=== PATIENT | male | born 1970 | race Hispanic/Latino ===

== ENCOUNTER 2018-05-11 09:28 | Observation (INO) | payer SELFPAY ==
[2018-05-11] MEDS ORDERED: METOPROLOL TARTRATE 5 MG/5 ML INJ IV ONE (09:53)
[2018-05-11] MEDS ORDERED: METOPROLOL TAR 50 MG TAB ONE (09:53)
[2018-05-11] MEDS ORDERED: NA CHLORIDE 0.9% 1,000 ML ONE (09:54)
[2018-05-11 10:08] LABS: Absolute Lymphocytes (CBC) 1.7 K/uL (0.7-4.9); Absolute Monocytes 0.9 K/uL (0.1-1.3); Absolute Neutrophil 5.3 K/uL (1.8-8.0); Basophils % 0.5 % (0-1.3); Eosinophils % 1.4 % (0-4.4); Hematocrit 44.4 % (39.6-49.0); Lymphocytes % 20.7 % (15.3-44.8); MCH 27.7 pg (27.0-35.0); MCV 82.7 fL (80-100); MPV 9.1 fL (7.6-11.3); Monocytes % 11.6 % (3.3-12.3); RBC Red Blood Cell Count 5.37 M/uL (4.33-5.43)
[2018-05-11] MEDS ORDERED: ASPIRIN 81 MG CHEWABLE TABLET ONE (10:09)
[2018-05-11] MEDS ORDERED: ENOXAPARIN 60 MG/0.6 ML SQ ONE (10:10)
[2018-05-11] MEDS ORDERED: METOPROLOL TAR 25 MG TAB ONE (10:10)
[2018-05-11 10:12] LABS: ALT/SGPT 19 U/L (12-78); AST/SGOT 15 U/L (15-37); Albumin 3.5 g/dL (3.4-5.0); Alkaline Phosphatase 107 U/L (45-117); BUN Blood Urea Nitrogen 18 mg/dL (7-18); Bicarbonate 31 mmol/L (21-32); Bilirubin Direct 0.1 mg/dL (0-0.2); Bilirubin Total 0.4 mg/dL (0.2-1.0); CKMB Creatine Kinase MB 1.8 ng/mL (0.3-3.6); Creatine Phosphokinase 144 U/L (39-308); Glucose Level 102 mg/dL (74-106); Magnesium 1.9 mg/dL (1.8-2.4); NT PRO-BNP 798 pg/mL (<125); Potassium 3.9 mmol/L (3.5-5.1); Protein, Total 7.1 g/dL (6.4-8.2); Sodium Level 144 mmol/L (136-145); Troponin (Emerg Dept Use Only) < 0.02 ng/mL (0.0-0.045)
--- NOTE | 2018-05-11 10:22 | RAD REPORT ---
EXAM DESCRIPTION: RAD - Chest Single View - 05/11/2018 9:41 am CLINICAL HISTORY: Right-sided chest and arm pain COMPARISON: None. TECHNIQUE: AP portable chest image was obtained [id number] hours . FINDINGS: Low lung volumes noted. Left hemidiaphragm elevation is present. Interstitial markings are prominent in part due to under penetrated portable technique and shallow inspiration. On a baseline examination, a mild interstitial edema or infiltrate not excluded. No peripheral consolidation or mas s. Significant component of failure or volume overload not suspected. Heart and vasculature are ladonna l. No measurable pleural effusion and no pneumothorax. No gross bony abnormality seen. No acute aorti c findings suspected. IMPRESSION: Shallow inspiration baseline exam shows prominent interstitial markings. This could be b aseline for the patient or represent a mild interstitial edema or infiltrate. No mass, focal consolidation or significant failure.
[2018-05-11 10:24] LABS: Protime INR 1.05
--- NOTE | 2018-05-11 10:30 | ER ---
Nurse's Notes [facility] Name: Chris Salazar III Age: 47 yrs Sex: Male : 1970 Arrival Date: 05/11/2018 Time: 09:34 Bed 4 Private MD: Diagnosis: Atrial fibrillation and flutter Presentation: 05/11 09:35 Presenting complaint: Patient states: pain to R arm on and off for weeks. 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 started feeling weird, pressure in chest. HR was flucutating from 70's to 140's. Transition of care: patient was not received from another setting of care. Onset of symptoms was May 11, 2018 at 08:00. Risk Assessment: Do you want to hurt yourself or someone else? Patient reports no desire to harm self or others. Initial Sepsis Screen: Does the patient meet any 2 criteria? No. Patient's initial sepsis screen is negative. Does the patient have a suspected source of infection? No. Patient's initial sepsis screen is negative. Care prior to arrival: IV initiated. 20 GA, in the left antecubital area. 09:35 Method Of Arrival: EMS: [facility] 09:35 Acuity: MAGUI 3 ch Triage Assessment: 09:38 General: Appears in no apparent distress. comfortable, Behavior is calm, cooperative, ch appropriate for age. Pain: Complains of pain in right arm. Neuro: No deficits noted. Cardiovascular: Heart tones S1 S2 present Capillary refill < 3 seconds in bilateral fingers toes Clubbing of nail beds is absent Patient's skin is warm and dry. Pulses are all present. Edema is absent. Rhythm is atrial fibrillation Chest pain is denied. Respiratory: No deficits noted. Airway is patent Respiratory effort is even, unlabored, Breath sounds are clear bilaterally. GI: Abdomen is round non-distended, Bowel sounds present X 4 quads. Abd is soft and non tender X 4 quads. Derm: Skin is intact, Skin is pink, warm \T\ dry. Historical: - Allergies: 09:38 No Known Allergies; ch - Home Meds: 09:38 None [Active]; ch - PMHx: 09:38 None; ch - PSHx: 09:38 None; ch - Immunization history:: Adult Immunizations up to date, Last tetanus immunization: up to date Pneumococcal vaccine is not up to date, Flu vaccine is not up to date. - Social history:: Smoking status: Patient/guardian denies using tobacco, Patient/guardian denies using alcohol, street drugs. - Ebola Screening: : Patient negative for fever greater than or equal to 101.5 degrees Fahrenheit, and additional compatible Ebola Virus Disease symptoms Patient denies exposure to infectious person Patient denies travel to an Ebola-affected area in the 21 days before illness onset No symptoms or risks identified at this time. Screenin:41 Abuse screen: Denies threats or abuse. Denies injuries from another. Nutritional screening: No deficits noted. Tuberculosis screening: No symptoms or risk factors identified. Fall Risk None identified. Assessment: 09:41 Reassessment: Patient appears in no apparent distress at this time. No changes from previously documented assessment. Patient and/or family updated on plan of care and expected duration. Pain level reassessed. Patient is alert, oriented x 3, equal unlabored respirations, skin warm/dry/pink. 10:23 Reassessment: Patient appears in no apparent distress at this time. No changes from previously documented assessment. pt hr is reduced but still A fib. 12:08 Reassessment: Patient appears in no apparent distress at this time. Patient and/or family updated on plan of care and expected duration. Pain level reassessed. Patient is alert, oriented x 3, equal unlabored respirations, skin warm/dry/pink. Patient denies pain at this time. Patient states feeling better. Patient states symptoms have improved. 12:08 Reassessment: Patient appears in no apparent distress at this time. pt denies pain, I ch attempt to call report, will call again in 10 min. 12:26 Reassessment: Patient appears in no apparent distress at this time. No changes from previously documented assessment. Patient and/or family updated on plan of care and expected duration. Pain level reassessed. Patient is alert, oriented x 3, equal unlabored respirations, skin warm/dry/pink. repot called to sugey whiting. Patient denies pain at this time. Vital Signs: 09:38 BP 120 / 81; Pulse 109; Resp 22; Temp 98.3; Pulse Ox 99% on R/A; Weight 117.93 kg; Height 6 ft. 1 in. (185.42 cm); Pain 5/10; 09:43 Pulse 128; ch 09:59 BP 101 / 80; Pulse 88; Resp 16; Temp 98.3; Pulse Ox 99% on R/A; Pain 0/10; ch 10:20 BP 118 / 78; Pulse 88; Resp 18; Pulse Ox 99% ; ch 11:00 BP 110 / 58; Pulse 96; Resp 18; Pulse Ox 99% ; ch 12:06 BP 103 / 78; Pulse 75; Resp 18; Temp 98.6; Pulse Ox 99% on R/A; Pain 0/10; ch 09:38 Body Mass Index 34.30 (117.93 kg, 185.42 cm) ch 11:00 pt still in A fib, rate between 70 and 110 ch ED Course: 09:34 Patient arrived in ED. iw 09:34 Dana Del Rio, RN is Primary Nurse. ch 09:37 Triage completed. ch 09:38 Arm band placed on left wrist. Patient placed in an exam room, on a stretcher, on personnel monitor, on pulse oximetry. EKG completed in triage. Results shown to MD. 09:41 X-ray completed. Portable x-ray completed in exam room. Patient tolerated procedure mh1 well. 09:41 No apparent distress. Resting quietly. ch 09:41 Patient has correct armband on for positive identification. Placed in gown. Bed in low ch position. Call light in reach. Side rails up X 1. Adult w/ patient. monitor tech on. Pulse ox on. NIBP on. Warm blanket given. 09:41 No provider procedures requiring assistance completed. Maintain EMS IV. Dressing ch intact. Good blood return noted. Site clean \T\ dry. Gauge \T\ site: 20G L AC. 09:42 XRAY Chest (1 view) In Process Unspecified. EDMS 09:51 EKG done, by dental laboratory technician apprentice. reviewed by Jack Wooten MD. sm3 09:54 Jack Wooten MD is Attending Physician. kdr 10:29 Caleb Marie DO is Hospitalizing Provider. kdr 11:10 Urine collected: clean catch specimen, cloudy, lucinda colored. jb1 Administered Medications: 09:50 Drug: Lopressor 2.5 mg Route: IVP; Site: left antecubital; ch 09:50 Drug: NS 0.9% 500 ml Route: IV; Rate: bolus; Site: left antecubital; ch 10:40 Follow up: IV Status: Completed infusion; IV Intake: 500ml ch 09:55 Drug: Lopressor 2.5 mg Route: IVP; Site: left antecubital; ch 10:20 Follow up: BP 118 / 78; Pulse 88 bpm; Resp 18 bpm; Pulse Ox 99% ch 10:20 Follow up: Response: No adverse reaction; Marked relief of symptoms; Marked relief of ch symptoms, erp states not to give pt the last round due to low bp 10:00 Drug: Lovenox 120 mg Route: Sub-Q; Site: left lower abdomen; ch 12:09 Follow up: Response: No adverse reaction; Marked relief of symptoms ch 10:19 Not Given (pt reports taking this medication [facility] the [facility] from [facility]): Aspirin ch Chewable Tablet 324 mg PO once; 81 mg tablets x 4 10:19 Drug: Lopressor 25 mg Route: PO; ch 12:10 Follow up: Response: No adverse reaction; Marked relief of symptoms ch Intake: 10:40 IV: 500ml; Total: 500ml. ch Outcome: 10:29 Decision to Hospitalize by Provider. kdr 12:35 Patient left the ED. dm5 Signatures: Dispatcher [employer] EDAnanda Jaffe jb1 Dana Del Rio RN RN Talya Fernandez RN RN dm5 Jack Wooten MD MD [facility] Kelsea Chaves 1 Randee Edward RN RN Lacy Loera 3 Corrections: (The following items were deleted from the chart) 09:38 09:35 Care prior to arrival: None. ch ch
--- NOTE | 2018-05-11 10:30 | EDPHYS ---
Physician Documentation [facility] Name: Chris Salazar III Age: 47 yrs Sex: Male : 1970 Arrival Date: 05/11/2018 Time: 09:34 Bed 4 Private MD: ED Physician Jack Wooten HPI: 05/11 10:33 This 47 yrs old Male presents to ER via EMS with complaints of Palpiations. kdr 10:33 The patient presents with a history of irregular heart beat. Context: The symptoms kdr occur at rest, with light activity. Onset: The symptoms/episode began/occurred suddenly, just prior to arrival. Duration: The patient or guardian reports a single episode, that is still ongoing. Modifying factors: The symptoms are aggravated by nothing. The symptoms are alleviated by nothing. Associated signs and symptoms: The patient has no apparent associated signs or symptoms, Pertinent positives: States that he just didn't feel right. Severity of symptoms: At their worst the symptoms were mild just prior to arrival, in the emergency department the symptoms are unchanged. The patient has not experienced similar symptoms in the past. The patient has been recently seen by a physician: Had routine eval \T\ blood work - all normal. No prior incidents like this. Historical: - Allergies: 09:38 No Known Allergies; ch - Home Meds: 09:38 None [Active]; ch - PMHx: 09:38 None; ch - PSHx: 09:38 None; ch - Immunization history:: Adult Immunizations up to date, Last tetanus immunization: up to date Pneumococcal vaccine is not up to date, Flu vaccine is not up to date. - Social history:: Smoking status: Patient/guardian denies using tobacco, Patient/guardian denies using alcohol, street drugs. - Ebola Screening: : Patient negative for fever greater than or equal to 101.5 degrees Fahrenheit, and additional compatible Ebola Virus Disease symptoms Patient denies exposure to infectious person Patient denies travel to an Ebola-affected area in the 21 days before illness onset No symptoms or risks identified at this time. ROS: 10:33 Constitutional: Negative for fever, chills, and weight loss, Eyes: Negative for injury, kdr pain, redness, and discharge, ENT: Negative for injury, pain, and discharge, Neck: Negative for injury, pain, and swelling, Respiratory: Negative for shortness of breath, cough, wheezing, and pleuritic chest pain, Abdomen/GI: Negative for abdominal pain, nausea, vomiting, diarrhea, and constipation, Back: Negative for injury and pain, : Negative for injury, bleeding, discharge, and swelling, MS/Extremity: Negative for injury and deformity, Skin: Negative for injury, rash, and discoloration, Neuro: Negative for headache, weakness, numbness, tingling, and seizure activity. Psych: Negative for depression, anxiety, suicide ideation, homicidal ideation, and hallucinations, Allergy/Immunology: Negative for hives, rash, and allergies, Endocrine: Negative for neck swelling, polydipsia, polyuria, polyphagia, and marked weight changes, Hematologic/Lymphatic: Negative for swollen nodes, abnormal bleeding, and unusual bruising. 10:33 Cardiovascular: Positive for palpitations, Negative for chest pain, edema, orthopnea, paroxysmal nocturnal dyspnea. Exam: 10:33 Constitutional: This is a well developed, well nourished patient who is awake, alert, kdr and in no acute distress. Head/Face: Normocephalic, atraumatic. Eyes: Pupils equal round and reactive to light, extra-ocular motions intact. Lids and lashes normal. Conjunctiva and sclera are non-icteric and not injected. Cornea within normal limits. Periorbital areas with no swelling, redness, or edema. Neck: Trachea midline, no thyromegaly or masses palpated, and no cervical lymphadenopathy. Supple, full range of motion without nuchal rigidity, or vertebral point tenderness. No Meningismus. Chest/axilla: Normal chest wall appearance and motion. Nontender with no deformity. No lesions are appreciated. Respiratory: Lungs have equal breath sounds bilaterally, clear to auscultation and percussion. No rales, rhonchi or wheezes noted. No increased work of breathing, no retractions or nasal flaring. Abdomen/GI: Soft, non-tender, with normal bowel sounds. No distension or tympany. No guarding or rebound. No evidence of tenderness throughout. Back: No spinal tenderness. No costovertebral tenderness. Full range of motion. Skin: Warm, dry with normal turgor. Normal color with no rashes, no lesions, and no evidence of cellulitis. MS/ Extremity: Pulses equal, no cyanosis. Neurovascular intact. Full, normal range of motion. Neuro: Awake and alert, GCS 15, oriented to person, place, time, and situation. Cranial nerves II-XII grossly intact. Motor strength 5/5 in all extremities. Sensory grossly intact. Cerebellar exam normal. Normal gait. Psych: Awake, alert, with orientation to person, place and time. Behavior, mood, and affect are within normal limits. 10:33 Cardiovascular: Rate: tachycardic, Rhythm: irregularly irregular, Pulses: no pulse deficits are appreciated, Heart sounds: normal, Edema: is not appreciated, JVD: is not appreciated. Vital Signs: 09:38 BP 120 / 81; Pulse 109; Resp 22; Temp 98.3; Pulse Ox 99% on R/A; Weight 117.93 kg; ch Height 6 ft. 1 in. (185.42 cm); Pain 5/10; 09:43 Pulse 128; ch 09:59 BP 101 / 80; Pulse 88; Resp 16; Temp 98.3; Pulse Ox 99% on R/A; Pain 0/10; ch 10:20 BP 118 / 78; Pulse 88; Resp 18; Pulse Ox 99% ; ch 11:00 BP 110 / 58; Pulse 96; Resp 18; Pulse Ox 99% ; ch 12:06 BP 103 / 78; Pulse 75; Resp 18; Temp 98.6; Pulse Ox 99% on R/A; Pain 0/10; ch 09:38 Body Mass Index 34.30 (117.93 kg, 185.42 cm) ch 11:00 pt still in A fib, rate between 70 and 110 ch MDM: 10:29 Patient medically screened. kdr 10:33 Data reviewed: vital signs, nurses notes, lab test result(s), EKG, radiologic studies. kdr Counseling: I had a detailed discussion with the patient and/or guardian regarding: the historical points, exam findings, and any diagnostic results supporting the discharge/admit diagnosis, lab results, radiology results, the need for further work-up and treatment in the hospital. 05/11 09:35 Order name: Basic Metabolic Panel; Complete Time: 10:26 05/11 09:35 Order name: CBC with Diff; Complete Time: 10:26 05/11 09:35 Order name: Ckmb; Complete Time: 10: 05/11 09:35 Order name: CPK; Complete Time: 10:26 05/11 09:35 Order name: LFT's; Complete Time: 10:26 05/11 09:35 Order name: Magnesium; Complete Time: 10:26 05/11 09:35 Order name: NT PRO-BNP; Complete Time: 10:26 05/11 09:35 Order name: PT-INR 05/11 09:35 Order name: Ptt, Activated 05/11 09:35 Order name: Troponin (emerg Dept Use Only); Complete Time: 10:26 05/11 11:10 Order name: Urine Culture jb1 05/11 11:10 Order name: Urine Microscopic Only jb1 05/11 11:12 Order name: Urine Dipstick--Ancillary (enter results) 05/11 11:35 Order name: Urine Microscopic Only EDMS 05/11 09:35 Order name: XRAY Chest (1 view); Complete Time: 10:26 05/11 09:35 Order name: EKG; Complete Time: 09:36 05/11 09:35 Order name: Cardiac monitoring; Complete Time: 09:59 05/11 09:35 Order name: EKG - Nurse/Tech; Complete Time: 09:59 05/11 09:35 Order name: IV Saline Lock; Complete Time: 10:00 05/11 09:35 Order name: Labs collected and sent; Complete Time: 10:00 05/11 09:35 Order name: O2 Per Protocol; Complete Time: 10:00 05/11 09:35 Order name: O2 Sat Monitoring; Complete Time: 10:00 05/11 09:35 Order name: Urine Dipstick-Ancillary (obtain specimen); Complete Time: 11:11 05/11 11:36 Order name: Urine Dipstick-Ancillary EDMS Administered Medications: 09:50 Drug: Lopressor 2.5 mg Route: IVP; Site: left antecubital; ch 09:50 Drug: NS 0.9% 500 ml Route: IV; Rate: bolus; Site: left antecubital; ch 10:40 Follow up: IV Status: Completed infusion; IV Intake: 500ml ch 09:55 Drug: Lopressor 2.5 mg Route: IVP; Site: left antecubital; ch 10:20 Follow up: BP 118 / 78; Pulse 88 bpm; Resp 18 bpm; Pulse Ox 99% ch 10:20 Follow up: Response: No adverse reaction; Marked relief of symptoms; Marked relief of ch symptoms, erp states not to give pt the last round due to low bp 10:00 Drug: Lovenox 120 mg Route: Sub-Q; Site: left lower abdomen; ch 12:09 Follow up: Response: No adverse reaction; Marked relief of symptoms ch 10:19 Not Given (pt reports taking this medication [facility] the [facility] from [facility]): Aspirin ch Chewable Tablet 324 mg PO once; 81 mg tablets x 4 10:19 Drug: Lopressor 25 mg Route: PO; ch 12:10 Follow up: Response: No adverse reaction; Marked relief of symptoms ch Disposition: 05/11/18 10:29 Hospitalization ordered by Caleb Marie for Observation. Preliminary diagnosis is Atrial fibrillation and flutter. - Bed requested for Telemetry/MedSurg (observation). - Status is Observation. dm5 - Condition is Fair. - Problem is new. - Symptoms have improved. UTI on Admission? No Signatures: Dispatcher [employer] EDMS Dana Del Rio, RN RN Talya Fernandez RN RN dm5 Jack Wooten MD MD kdr Botello, Elizabeth eb Corrections: (The following items were deleted from the chart) 12:01 10:29 Hospitalization Ordered by Caleb Marie DO for Observation. Preliminary eb diagnosis is Atrial fibrillation and flutter. Bed requested for Telemetry/MedSurg (observation). Status is Observation. Condition is Fair. Problem is new. Symptoms have improved. UTI on Admission? No. kdr 12:35 12:01 05/11/2018 10:29 Hospitalization Ordered by Caleb Marie DO for Observation. dm5 Preliminary diagnosis is Atrial fibrillation and flutter. Bed requested for Telemetry/MedSurg (observation). Status is Observation. Condition is Fair. Problem is new. Symptoms have improved. UTI on Admission? No. eb
[2018-05-11 11:35] LABS: Urine Blood TRACE (NEG); Urine Glucose NEGATIVE (NEG); Urine Protein NEGATIVE (NEG)
[2018-05-11 11:35] LABS: Urine Bacteria <20 /HPF (NONE SEEN); Urine Culture Reflex Order NOT NEEDED; Urine Mucus LIGHT /HPF (NONE SEEN); Urine RBC <5 /HPF (NONE SEEN); Urine Trichomonas PRESENT (NONE SEEN)
[2018-05-11] MEDS ORDERED: ACETAMINOPHEN 500 MG TAB PO PRN (11:43)
[2018-05-11] MEDS ORDERED: ONDANSETRON 4 MG/2 ML VIAL IV PRN (11:43)
--- NOTE | 2018-05-11 11:49 | EKG ---
Test Date: 2018-05-11 Test Time: 09:30:53 [employer] P[employer] Supervisor: AGUSTIN MEASUREMENT RESULTS: Intervals: Rate: 101 [place]: QRSD: 76 QT: 322 QTc: 417 [place]: P: AK: QRS: 51 T: 22 INTERPRETIVE STATEMENTS: Atrial fibrillation with rapid ventricular response Abnormal ECG No previous ECG available for comparison Electronically Signed On 05-11-18 11:47:59 CDT by Morgan Yarbrough
[2018-05-11] MEDS ORDERED: metroNIDAZOLE 500 MG TABLET PO ONE (12:30)
--- NOTE | 2018-05-11 13:44 | P.HP ---
Certification for Inpatient Patient admitted to: Observation With expected LOS: <2 Midnights Patient will require the following post-hospital care: None Practitioner: I am a practitioner with admitting privileges, knowledge of patient current condition, hospital course, and medical plan of care. Services: Services provided to patient in accordance with Admission requirements found in Title 42 Section 412.3 of the Code of Federal Regulations Patient History Date of Service: 05/11/18 Primary Care Provider: None Reason for admission: Palpitations History of Present Illness: 47-year-old male presented emergency room with palpitations. Patient reported palpitations earlier today. He went to work about 6:00 a.m.. Around 7:00 a.m. after eating he start to notice some palpitations. He denied any chest pain, shortness of breath, nausea or vomiting. Patient was sent to the ER for further evaluation. In the ER patient was found to be in atrial fibrillation with RVR. Rate was around anywhere between 110-140. Patient was given Lopressor IV with improvement. Rate now in the 90s to 100. CBC unremarkable. Troponin less than 0.02. BNP 798. GFR 79. Chest x-ray unremarkable. Urinalysis showed positive for Trichomonas. The patient was admitted for further evaluation. When I saw the patient the ER, he appeared comfortable. He denied any significant chest pain or shortness of breath. He does not take any medication. He has no past medical problems. He does not smoke or drink alcohol. Allergies No Known Allergies Allergy (Unverified 05/11/18 11:59) Home medications list reviewed: Yes - Past Medical/Surgical History Diabetic: No Past Medical History: Patient denies medical history Past Surgical History: Patient denies surgical history Psychosocial/ Personal History: The patient is . He has 3 children. 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 - Family History Family History: Reviewed- Non-Contributory - Social History Smoking Status: Never smoker Alcohol use: No CD- Drugs: No Caffeine use: Yes Place of Residence: Home Review of Systems General: Unremarkable Eyes: Unremarkable ENT: Unremarkable Respiratory: Unremarkable Cardiovascular: Palpitations, As per HPI Gastrointestinal: Unremarkable Genitourinary: Unremarkable Musculoskeletal: Unremarkable Integumentary: Unremarkable Neurological: Unremarkable Lymphatics: Unremarkable Physical Examination - Vital Signs Temperature: 98.6 F Blood Pressure: 103/78 Pulse: 75 Respirations: 18 - Physical Exam General: Alert, In no apparent distress, Oriented x3, Cooperative HEENT: Atraumatic, Normocephalic, PERRLA, Mucous membr. moist/pink Neck: Supple, No Thyromegaly Respiratory: Clear to auscultation bilaterally, Normal air movement Cardiovascular: Irregular heart rate/rhythm (Atrial fibrillation, rate around 90 -100) Gastrointestinal: Normal bowel sounds, No ascites, No tenderness, No masses, No rebound, No guarding Musculoskeletal: No erythema, No tenderness, No warmth Integumentary: No tenderness/swelling, No erythema, No warmth, No cyanosis Neurological: Normal speech, Normal strength at 5/5 x4 extr, Normal tone, Normal affect Lymphatics: No axilla or inguinal lymphadenopathy - Studies Laboratory Data (last 24 hrs) 05/11/18 09:34: PT 12.4, INR 1.05, APTT 33.1 05/11/18 09:34: WBC 8.0, Hgb 14.9, Hct 44.4, Plt Count 217 05/11/18 09:34: Sodium 144, Potassium 3.9, BUN 18, Creatinine 1.00, Glucose 102 , Magnesium 1.9, Total Bilirubin 0.4, AST 15, ALT 19, Alkaline Phosphatase 107 Assessment and Plan - Plan Impression: Palpitations with new onset atrial fibrillation with RVR. Trichomonas Plan: Patient will be admitted for further evaluation. Will start metoprolol 25 mg 1 pill twice daily. Will continue with Lovenox at 1 milligram/kilogram subcu twice daily. Case discussed with cardiology who will evaluate the patient further. Will check echocardiogram. Will monitor him in telemetry. Will continue to monitor cardiac enzymes. Patient found to have Trichomonas in the urine. Will teach about sexually transmitted infections. Will give patient metronidazole 2 g 1 time dose. Partner will need to be treated. Await further recommendations from cardiology. - Advance Directives Does patient have a Living Will: No Does patient have a Durable POA for Healthcare: No - Code Status/Comfort Care Code Status Assessed: Yes Code Status: Full Code Time Spent Managing Pts Care (In Minutes): 55
[2018-05-11 14:12] LABS: Thyroid Stimulating Hormone 1.54 uIU/mL (0.360-3.740)
[2018-05-11] MEDS: NA CHLORIDE 0.9% 1,000 ML IV SCH ×2 (14:46→22:32)
[2018-05-11] MEDS: METOPROLOL TAR 25 MG TAB PO SCH (18:00)
[2018-05-11 18:20] LABS: CKMB Creatine Kinase MB 1.3 ng/mL (0.3-3.6); Creatine Phosphokinase 99 U/L (39-308); Troponin I < 0.02 ng/mL (0.0-0.045)
[2018-05-11] MEDS: FAMOTIDINE 20 MG TAB PO SCH (21:00)
[2018-05-11] MEDS: Enoxaparin 120 MG/0.8 ML SYR SQ SCH (21:00)
[2018-05-12 03:20] LABS: Creatine Phosphokinase 84 U/L (39-308); Troponin I < 0.02 ng/mL (0.0-0.045)
[2018-05-12] MEDS: METOPROLOL TAR 25 MG TAB PO SCH (05:15)
[2018-05-12] MEDS: NA CHLORIDE 0.9% 1,000 ML IV SCH (05:16)
[2018-05-12 05:45] LABS: Absolute Lymphocytes (CBC) 1.1 K/uL (0.7-4.9); Absolute Monocytes 0.7 K/uL (0.1-1.3); Absolute Neutrophil 4.3 K/uL (1.8-8.0); Basophils % 0.8 % (0-1.3); Eosinophils % 1.1 % (0-4.4); Hematocrit 42.2 % (39.6-49.0); Lymphocytes % 17.4 % (15.3-44.8); MCH 27.5 pg (27.0-35.0); MCV 83.2 fL (80-100); MPV 9.7 fL (7.6-11.3); RBC Red Blood Cell Count 5.07 M/uL (4.33-5.43)
[2018-05-12 05:58] LABS: BUN Blood Urea Nitrogen 16 mg/dL (7-18); Bicarbonate 24 mmol/L (21-32); Glucose Level 112 mg/dL (74-106); HDL Cholesterol 43 mg/dL (40-60); LDL Cholesterol, Calculated 70 (<130); Potassium 3.8 mmol/L (3.5-5.1); Sodium Level 143 mmol/L (136-145)
[2018-05-12] MEDS ORDERED: POTASSIUM CL SA 10 MEQ TAB PO ONE (06:11)
[2018-05-12] MEDS: Enoxaparin 120 MG/0.8 ML SYR SQ SCH (09:00)
[2018-05-12] MEDS: FAMOTIDINE 20 MG TAB PO SCH (09:00)
--- NOTE | 2018-05-12 10:56 | P.DS ---
Admission Date: 05/11/18 Discharge Date: 05/12/18 Primary Care Provider: None Disposition: ROUTINE DISCHARGE Discharge Condition: GOOD Reason for Admission: Palpitations Consultations: Cardiology-Dr. Yarbrough Procedures: Medical problem list: Palpitations secondary to New onset atrial fibrillation. Now on chronic anti coagulation therapy Urine positive for Trichomonas infection Brief History of Present Illness: 47-year-old male presented emergency room with palpitations. Patient reported palpitations earlier today. He went to work about 6:00 a.m.. Around 7:00 a.m. after eating he start to notice some palpitations. He denied any chest pain, shortness of breath, nausea or vomiting. Patient was sent to the ER for further evaluation. In the ER patient was found to be in atrial fibrillation with RVR. Rate was around anywhere between 110-140. Patient was given Lopressor IV with improvement. Rate now in the 90s to 100. CBC unremarkable. Troponin less than 0.02. BNP 798. GFR 79. Chest x-ray unremarkable. Urinalysis showed positive for Trichomonas. The patient was admitted for further evaluation. When I saw the patient the ER, he appeared comfortable. He denied any significant chest pain or shortness of breath. He does not take any medication. He has no past medical problems. He does not smoke or drink alcohol. Hospital Course: Patient presented with palpitations. Patient found to be in new onset atrial fibrillation. Patient was admitted for treatment. Patient evaluated by Cardiology. Patient did well during the course of his stay. At discharge patient will continue with metoprolol 50 mg 1 pill twice daily along with chronic anti coagulation therapy-Xarelto 20 mg daily. Samples of Xarelto was provided by Cardiology. Patient will need to follow up with cardiology within 1 -2 weeks to follow up this hospitalization. Education on atrial fibrillation and chronic anti coagulation therapy-Xarelto will be provided. Urine culture was positive for Trichomonas infection. This is a sexually transmitted infection. This was addressed in detail with the patient. Patient was treated with metronidazole 2 g 1 time dose. Recommendation is for the patient to have his partner treated and monitored. Patient will need to follow up with a PCP to further monitor and address. Education on safe sex will be provided. Vital Signs/Physical Exam: Temp Pulse Resp BP Pulse Ox 97.5 F 89 17 105/54 L 97 05/12/18 08:00 05/12/18 08:00 05/12/18 08:00 05/12/18 08:00 05/12/18 08:00 General: Alert, In no apparent distress, Oriented x3, Cooperative HEENT: Atraumatic Neck: Supple Respiratory: Clear to auscultation bilaterally, Normal air movement Cardiovascular: Irregular heart rate/rhythm (Atrial fibrillation, rate controlled) Gastrointestinal: Normal bowel sounds, Soft and benign, Non-distended, No tenderness, No masses, No rebound, No guarding Musculoskeletal: No erythema, No tenderness, No warmth Integumentary: No tenderness/swelling, No erythema, No warmth, No cyanosis Neurological: Normal speech, Normal strength at 5/5 x4 extr, Normal tone, Normal affect Laboratory Data at Discharge: WBC 6.2 K/uL (4.3-10.9) D 05/12/18 04:32 Hgb 13.9 g/dL (13.6-17.9) 05/12/18 04:32 Hct 42.2 % (39.6-49.0) 05/12/18 04:32 Plt Count 161 K/uL (152-406) D 05/12/18 04:32 PT 12.4 SECONDS (9.5-12.5) 05/11/18 09:34 INR 1.05 05/11/18 09:34 APTT 33.1 SECONDS (24.3-36.9) 05/11/18 09:34 Sodium 143 mmol/L (136-145) 05/12/18 04:32 Potassium 3.8 mmol/L (3.5-5.1) 05/12/18 04:32 BUN 16 mg/dL (7-18) 05/12/18 04:32 Creatinine 0.80 mg/dL (0.55-1.3) 05/12/18 04:32 Glucose 112 mg/dL (74-106) H 05/12/18 04:32 Magnesium 2.0 mg/dL (1.8-2.4) 05/12/18 04:32 Total Bilirubin 0.4 mg/dL (0.2-1.0) 05/11/18 09:34 AST 15 U/L (15-37) 05/11/18 09:34 ALT 19 U/L (12-78) 09/07/18 09:34 Alkaline Phosphatase 107 U/L (45-117) 05/11/18 09:34 Troponin I < 0.02 ng/mL (0.0-0.045) 05/12/18 02:17 Triglycerides 141 mg/dL (<150) 05/12/18 04:32 Cholesterol 141 mg/dL (<200) 05/12/18 04:32 HDL Cholesterol 43 mg/dL (40-60) 05/12/18 04:32 Cholesterol/HDL Ratio 3.28 05/12/18 04:32 Home Medications: NK [No Home Meds] 05/11/18 Patient Discharge Instructions: 1. Patient will need to establish care with a PCP to follow up this hospitalization. 2. Patient presented with palpitations. Patient found to be in new onset atrial fibrillation. Patient was admitted for treatment. Patient evaluated by Cardiology. Patient did well during the course of his stay. At discharge patient will continue with metoprolol 25 mg 1 pill twice daily along with chronic anti coagulation therapy- Xarelto 20 mg daily. Samples of Xarelto was provided by Cardiology. Patient will need to follow up with cardiology within 1-2 weeks to follow up this hospitalization. Education on atrial fibrillation and chronic anti coagulation therapy-Xarelto will be provided. 3. Urine culture was positive for Trichomonas infection. This is a sexually transmitted infection. This was addressed in detail with the patient. Patient was treated with metronidazole 2 g 1 time dose. Recommendation is for the patient to have his partner treated and monitored. Patient will need to follow up with a PCP to further monitor and address. Education on safe sex will be provided. Diet: AHA Activity: Ad olivia Time spent managing pt's care (in minutes): 55
--- NOTE | 2018-05-12 11:25 | CON ---
Date of Consultation: 05/12/[address] Marie' service on 05/11/2018. I saw the patient on 05/12/2018. Reason For Consultation: New-onset atrial fibrillation. History Of Present Illness: Mr. Salazar is a 47-year-old male, who has no past medic al history, came in with palpitation, found to be in atrial fibrillation, given IV Lopressor and Love nox. He remained in atrial fibrillation this morning at a rate controlled. No symptoms. Denied theodore st pain, nausea, vomiting, diaphoresis, PND, orthopnea, pedal edema, or syncope. Past Medical History: Negative. Allergies: NEGATIVE. Medications: Home medications are none. Family History: Negative. Review of Systems: Negative. Social History: Negative for tobacco, drugs, or alcohol. Physical Examination: VITAL SIGNS: Stable. Atrial fibrillation, rate of 90. HEENT: Negative. NECK: Supple with no bruit. CHEST: Clear to auscultation and percussion. CARDIAC EXAM: Revealed an irregularly irregular rhythm and rate. No murmurs, gallops, or rubs. ABDOMEN: Benign. EXTREMITIES: Revealed no clubbing, cyanosis, or edema. Diagnostic Data: All within normal limits except for the EKG showing atrial fibrillation. His echoc ardiogram is normal. Impression And Plan: New-onset atrial fibrillation. Normal echo. Low CHADS score, but I would feel more comfortable at least for now while he is in atrial fibrillation to keep him on Xarelto, beta-bl ocker, 50 b.i.d. I think he can go home. I will see him in the office soon. If he remains in atria l fibrillation over the next 3 weeks. I will do an electrical cardioversion. I went to the office a nd brought him samples of Xarelto 20 mg daily to last him at least 6 weeks for now. BRAIN/NERY Voice ID: [id number] Report ID: [id number]
--- NOTE | 2018-05-14 08:27 | ECHO ---
HEIGHT: 6 ft 1 in WEIGHT: 259 lb 15.858 oz DATE OF STUDY: 05/11/[address]: 2-DIMENSIONAL: YES M.MODE: YES DOPPLER: YES COLOR FLOW: YES TDS: YES PORTABLE: NO DEFINITY: NO BUBBLE STUDY: NO DIAGNOSIS: NEW ONSET AFIB WITH RAPID VENTRICULAR RESPONSE CARDIAC HISTORY: CATHERIZATION: NO SURGERY: NO PROSTHETIC VALVE: NO PACEMAKER: NO MEASUREMENTS (cm) DIASTOLIC (NORMALS) SYSTOLIC (NORMALS) IVSd 0.9 (0.6-1.2) LA Diam 3.9 (1.9-4.0) LVEF 66% LVIDd 3.5 (3.5-5.7) LVIDs 2.3 (2.0-3.5) %FS 35% LVPWd 1.1 (0.6-1.2) Ao Diam 3.0 (2.0-3.7) 2 DIMENSIONAL ASSESSMENT: RIGHT ATRIUM: NORMAL LEFT ATRIUM: NORMAL RIGHT VENTRICLE: NORMAL LEFT VENTRICLE: NORMAL TRICUSPID VALVE: NORMAL MITRAL VALVE: NORMAL PULMONIC VALVE: NORMAL AORTIC VALVE: NORMAL PERICARDIAL EFFUSION: NONE AORTIC ROOT: NORMAL LEFT VENTRICULAR WALL MOTION: NORMAL DOPPLER/COLOR FLOW: NORMAL COMMENTS: NORMAL 2D ECHOCARDIOGRAM WITH DOPPLER. NO WALL MOTION ABNORMALITIES. NORMAL LEFT ATRIUM SIZE AND FUNCTION. NO THROMBUS. TECHNOLOGIST: SEGUNDO PHILLIPS
== END 2018-05-12 13:45 | disposition home or self-care (01) ==
LOC: ER 09:28 → ERHOLD 10:31 → 4TH 12:31
PROVIDERS: ADMIT Family Medicine; ATTEND Family Medicine
DX: I48.91 Unspecified atrial fibrillation (principal); A59.00 Urogenital trichomoniasis, unspecified
CPT/HCPCS: 36415; 71045; 80048; 80061; 80076; 81003; 81015; 82550; 82553; 83735; 83880; 84439; 84443; 84484; 85025; 85610; 85730; 87086; 87088; 93005; 93306; 96361; 96372; 96374; 99284; G0378; J1650; J7030